=== PATIENT | female | born 2000 | race Hispanic/Latino ===

== ENCOUNTER 2020-04-10 12:03 | Outpatient (CLI) | payer OTHER ==
[2020-04-11 12:15] LABS: SARS-CoV-2 MS2 Positive; SARS-CoV-2 N Gene Negative; SARS-CoV-2 S Gene Negative; SARS-CoV-2 orf1ab Negative
== END 2020-04-10 12:04 | disposition home or self-care (01) ==
LOC: LABSCS 12:03
PROVIDERS: ATTEND Obstetrics & Gynecology
DX: Z11.59 Encounter for screening for other viral diseases (principal)
CPT/HCPCS: 87635; U0003

== ENCOUNTER 2020-04-12 20:00 | Inpatient (IN) | payer OTHER ==
[~2020-04-12 20:00] MED LIST: Lidocaine 2% MPF 10 ML AMP (For Epidural Use) ONE
[2020-04-12 20:45] VITALS: BMI 31.6
[2020-04-12] MEDS ORDERED: Lidocaine 1% (PF) 30 ML VIAL SC PRN (21:06)
[2020-04-12] MEDS ORDERED: hydrALAZINE 20 MG/ML VIAL SLOW IVP PRN (21:06)
[2020-04-12] MEDS ORDERED: Zolpidem Tartrate 5 MG TAB PO PRN (21:06)
[2020-04-12] MEDS ORDERED: Carboprost 250 MCG/ML AMP IM PRN (21:06)
[2020-04-12] MEDS ORDERED: Methylergonovine 0.2 MG/ML VIAL IM PRN (21:06)
[2020-04-12] MEDS ORDERED: Acetaminophen 500 MG TAB PO PRN (21:06)
[2020-04-12] MEDS ORDERED: Ibuprofen 800 MG TAB PO PRN (21:06)
[2020-04-12] MEDS ORDERED: Diphenoxylate HCl/Atropine Tablet PO PRN ×2 (21:06)
[2020-04-12] MEDS ORDERED: HYDROcodone/Acetaminophen 5/325 mg Tablet PO PRN ×2 (21:06)
[2020-04-12] MEDS ORDERED: Promethazine HCl 25 MG/ML VIAL IM PRN (21:06)
[2020-04-12] MEDS ORDERED: Ondansetron PF 4 MG/2 ML Vial IVP PRN (21:06)
[2020-04-12] MEDS ORDERED: Misoprostol 200 MCG TAB PR PRN (21:06)
--- NOTE | 2020-04-12 21:06 | PDOC.LDHP ---
Labor and Delivery H&P Chief complaint: scheduled induction HPI: 19 Y/O AT 38 AND 5/7 WEEKS PRESENTS FOR TERM INDUCTION OF LABOR. Due date: 04/14/20 Grav: 1 Para: 0 Current complications: none Abnormal US findings: No Current medications: pre-annalee vitamins Previous surgical history: none Allergies/Adverse Reactions: Allergies Allergy/AdvReac Type Severity Reaction Status Date / Time latex Allergy Verified 04/12/20 20:42 Social history: none - Physical Exam Vital signs reviewed and normal: yes General: NAD, resting Heart: RRR Lungs: CTAB Abdomen: gravid Extremeties: no edema FHT: category 1 - Assessment L&D Assessment: elective induction at term - Plan Plan: admit to L&D, cervical ripening
[2020-04-12] MEDS: Lactated Ringer's 1,000 ML IV SCH ×2 (21:12→22:17)
[2020-04-12] MEDS ORDERED: NS w/ Oxytocin 10 units 500 ML IV SCH ×2 (21:15)
[2020-04-12 21:34] LABS: Hemoglobin 12.2 g/dL (12.0-16.0); Mean Corpuscular HGB CONC 34.5 g/dL (32.0-36.0); Mean Corpuscular Hemoglobin 30.2 pg (25.0-35.0); Mean Corpuscular Volume 87.5 fL (78.0-98.0); Mean Platelet Volume 8.2 fL (7.4-10.4); Platelet Count 307 thou/uL (130-400); RBC Distribution Width 12.8 % (11.5-14.5); Red Blood Cell (RBC) Count 4.03 mill/uL (4.00-5.20); White Blood Cell (WBC) Count 7.8 thou/uL (4.8-10.8)
[2020-04-12 22:18] LABS: Syphilis Antibody Nonreactive (Nonreactive); Syphilis Antibody Index 0.02 S/CO (<1.00 Non-Reactive)
[2020-04-12] MEDS: Misoprostol 100 MCG TAB VAG SCH (23:28)
[2020-04-13 01:11] LABS: HBSAg Index 0.17 S/CO (0-0.99); Hep B Surf Ag Non-Reactive S/CO (NonReactive)
[2020-04-13] MEDS: Misoprostol 100 MCG TAB VAG SCH (02:35)
[2020-04-13] MEDS: Butorphanol Tartrate 1 MG/ML VIAL SLOW IVP PRN ×4 (03:38→07:58)
[2020-04-13] MEDS: Lactated Ringer's 1,000 ML IV SCH ×2 (04:02→09:47)
[2020-04-13] MEDS ORDERED: Fentanyl 4 mcg/Bup 0.1% Cadd 100 ML ONE (08:07)
[2020-04-13] MEDS ORDERED: Lactated Ringer's 500 ML IV PRN (10:49)
[2020-04-13] MEDS ORDERED: Ondansetron PF 4 MG/2 ML Vial IVP PRN ×2 (10:49→17:34)
[2020-04-13] MEDS ORDERED: Naloxone HCl 0.4 mg/ml Vial IVP PRN ×2 (10:49)
[2020-04-13] MEDS ORDERED: Promethazine HCl 25 MG/ML VIAL IM PRN ×2 (10:49→17:34)
[2020-04-13] MEDS ORDERED: Acetaminophen 325 MG TAB PO PRN (10:49)
[2020-04-13] MEDS ORDERED: diphenhydrAMINE 50 MG/ML VIAL IVP PRN (10:49)
[2020-04-13] MEDS ORDERED: EPHEDRINE 25 MG/5 ML SYRINGE SLOW IVP PRN (10:49)
[2020-04-13] MEDS ORDERED: Communication Order-Pharmacy FS SCH (11:00)
[2020-04-13] MEDS ORDERED: Fentanyl 4 mcg/Bupivacaine 0.1% Cassette 100 ML EPIDURAL SCH (11:00)
[2020-04-13] MEDS: NS / Oxytocin 40 units/1000ml 1,000 ML IV PRN ×2 (13:10→14:31)
[2020-04-13] MEDS ORDERED: Milk Of Magnesia 30 ML UDCUP PO PRN (17:34)
[2020-04-13] MEDS ORDERED: Benzocaine-Menthol 82.5 ML CAN TOP PRN (17:34)
[2020-04-13] MEDS ORDERED: NS / Oxytocin 40 units/1000ml 1,000 ML IV SCH (17:34)
[2020-04-13] MEDS ORDERED: Misoprostol 200 MCG TAB VAG PRN (17:34)
[2020-04-13] MEDS ORDERED: Preparation H Ointment 28 GM TUBE PR PRN (17:34)
[2020-04-13] MEDS ORDERED: Zolpidem Tartrate 5 MG TAB PO PRN (17:34)
[2020-04-13] MEDS ORDERED: diphenhydrAMINE 25 MG CAP PO PRN (17:34)
[2020-04-13] MEDS ORDERED: hydrALAZINE 20 MG/ML VIAL SLOW IVP PRN (17:34)
[2020-04-13] MEDS ORDERED: Bisacodyl 10 MG SUPP PR PRN (17:34)
[2020-04-13] MEDS ORDERED: Lanolin Ointment 7 GM TUBE TOP PRN (17:34)
[2020-04-13] MEDS ORDERED: Methylergonovine 0.2 MG/ML VIAL IM PRN (17:34)
[2020-04-13] MEDS ORDERED: HYDROcodone/Acetaminophen 5/325 mg Tablet PO PRN ×2 (17:34)
[2020-04-13] MEDS: Ibuprofen 800 MG TAB PO SCH (21:14)
[2020-04-13] MEDS: Docusate Calcium (SURFAK) 240 MG CAP PO SCH (21:14)
[2020-04-14] MEDS: Ibuprofen 800 MG TAB PO SCH ×3 (05:37→23:14)
[2020-04-14 05:59] LABS: Mean Corpuscular HGB CONC 33.2 g/dL (32.0-36.0); Mean Corpuscular Hemoglobin 29.5 pg (25.0-35.0); Mean Corpuscular Volume 88.7 fL (78.0-98.0); Mean Platelet Volume 8.3 fL (7.4-10.4); Platelet Count 295 thou/uL (130-400); RBC Distribution Width 12.9 % (11.5-14.5); Red Blood Cell (RBC) Count 3.39 mill/uL (4.00-5.20); White Blood Cell (WBC) Count 11.1 thou/uL (4.8-10.8)
[2020-04-14] MEDS ORDERED: Measles/Mumps/Rubella 10 MCG/0.5 ML VIAL SC ONE (09:00)
[2020-04-14] MEDS ORDERED: Adacel (T-DAP) 0.5 ML SYRINGE IM ONE (09:00)
[2020-04-14] MEDS ORDERED: Varicella virus, LIVE 0.5 ML VIAL SC ONE (09:00)
[2020-04-14] MEDS: Ferrous Sulfate 325 MG TAB PO SCH ×2 (11:59→16:57)
[2020-04-14] MEDS: Prenatal Vitamin 1 TAB PO SCH (12:01)
[2020-04-14] MEDS: Docusate Calcium (SURFAK) 240 MG CAP PO SCH ×2 (12:01→23:14)
--- NOTE | 2020-04-14 18:32 | PDOC.PP ---
Post Progress Note Post Day #: 1 PO intake tolerated: yes Flatus: yes Ambulation: yes Vital Signs (12 hours) Temp Pulse Resp BP Pulse Ox 04/14/20 12:15 98.3 F 81 20 144/65 H 04/14/20 08:00 98.7 F 84 18 112/61 100 Weight Weight 190 lb - Physical Examination General: NAD Cardiovascular: no m/r/g, RRR Respiratory: clear to auscultation bilaterally, non-labored breathing Abdominal: + bowel sounds, lochia, no distention Extremities: negative homans (B) Neurological: no gross focal deficits Psychiatric: A&Ox3, normal affect Result Diagrams: 04/14/20 05:18 Additional Labs: Post Labs Blood Type A POSITIVE 04/12/20 22:05 Hep Bs Antigen Non-Reactive S/CO (NonReactive) 04/12/20 21:18 Rubella IgG Antibody 0.93 index (Immune >0.99) L 04/12/20 21:18
[2020-04-15] MEDS: Ibuprofen 800 MG TAB PO SCH (06:43)
[2020-04-15] MEDS: Ferrous Sulfate 325 MG TAB PO SCH (08:15)
[2020-04-15] MEDS: Prenatal Vitamin 1 TAB PO SCH (08:23)
[2020-04-15] MEDS: Docusate Calcium (SURFAK) 240 MG CAP PO SCH (08:23)
[2020-04-15 08:32] VITALS: BP 128/62; TEMP 98.7
[2020-04-15] MEDS: Misoprostol 100 MCG TAB VAG SCH ×2 (09:52→09:53)
== END 2020-04-15 13:10 | disposition home or self-care (01) | DRG 807 ==
LOC: L&D 20:28 → 3SW 04-13 17:09
PROVIDERS: ADMIT Obstetrics & Gynecology; ATTEND Obstetrics & Gynecology
PROC: 10E0XZZ Delivery of Products of Conception, External Approach (ICD-10-PCS; principal; 2020-04-12)
PROC: 3E033VJ Introduction of Other Hormone into Peripheral Vein, Percutaneous Approach (ICD-10-PCS; 2020-04-12)
DX: O80 Encounter for full-term uncomplicated delivery (principal); Z37.0 Single live birth; Z3A.39 39 weeks gestation of pregnancy
CPT/HCPCS: 36415; 51702; 85027; 86762; 86780; 86850; 86900; 86901; 87340; 90715; J0595; J2001; J2405